=== PATIENT | female | born 1970 | race Caucasian/White ===

== ENCOUNTER 2017-08-08 10:45 | Outpatient (CLI) | payer BC ==
--- NOTE | 2017-08-08 13:54 | MRI ---
MRI CERVICAL SPINE WITHOUT CONTRAST: Date: 08/08/17 HISTORY: Neck pain x2 weeks. COMPARISON: None. TECHNIQUE: MRI cervical spine is performed without intravenous Gadolinium administration. Multisequential, multi planar imaging is performed. FINDINGS: There is appropriate T1 marrow signal intensity of the cervical vertebra. Cervical spine vertebral zeynep dy height is maintained. No fracture. Approximately 2.0 mm of anterolisthesis of C4 upon C5. Visualized brain parenchyma, cervicomedullary junction, cervical cord, and the upper thoracic cord bocanegra ve a normal size and signal intensity. C2-C3: No significant disc osteophyte complex. No significant central canal stenosis. Foramina are patent. C3-C$: No significant disc osteophyte complex. No significant central canal stenosis or foraminal narrowing. C4-C5: No significant disc osteophyte complex. No significant central canal stenosis or foraminal narrowing. C5-C6: Broad based disc osteophyte complex obliterates the ventral subarachnoid space. Mild flattening of th e cervical cord, without T2 hyperintensity of the cord. Mild central canal stenosis. Degenerative whit nges in the right uncovertebral joint result in mild to moderate right foraminal narrowing. Left neur al foramen is mildly narrowed due to degenerative change of the uncovertebral joint. C6-C7: There is a left paracentral disc osteophyte complex that abuts the thecal sac. Mild central canal maci nosis. Minimal mass effect in the left hemicord. No T2 hyperintensity of the cord. Neural foramina ar e patent bilaterally. C7-T1: No significant central canal stenosis or foraminal narrowing. IMPRESSION: Degenerative changes of the cervical spine as detailed above. POS: [facility]
== END 2017-08-08 10:46 | disposition home or self-care (01) ==
LOC: SCSMRI 10:45
PROVIDERS: ATTEND Neurological Surgery
DX: M47.22 Other spondylosis with radiculopathy, cervical region (principal); M54.2 Cervicalgia
CPT/HCPCS: 72141

== ENCOUNTER 2017-09-01 09:20 | Outpatient (CLI) | payer BC ==
--- NOTE | 2017-09-01 12:57 | MRI ---
MRI OF THE LEFT KNEE WITHOUT CONTRAST: Date: 09/01/17 INDICATION: Left knee pain. COMPARISON: None. FINDINGS: There are postsurgical changes of ACL reconstruction. There is undulation of the ACL graft in the int ercondylar region which may be related to impingement of the ACL graft. No definite full thickness te ar is evident. PCL is intact. MCL and LCLC are intact. Medial and lateral meniscus are intact. Extens or mechanism is intact. There is diminutive appearance of the lateral meniscal and medial meniscal zeynep dies which may be related to partial meniscectomies. IMPRESSION: 1. Postsurgical change of ACL reconstruction. There is some undulation of the mid aspect of the ACL graft near the intercondylar notch which can be seen with graft impingement. Recommend correlation wi th the clinical exam. No definite full thickness tear is evident. 2. Truncation appearance of the bodies of both the lateral and medial meniscus may reflect sequelae of partial meniscectomies. POS: [facility]
== END 2017-09-01 09:21 | disposition home or self-care (01) ==
LOC: SCSMRI 09:20
PROVIDERS: ATTEND Orthopaedic Surgery
DX: M25.562 Pain in left knee (principal); Z98.890 Other specified postprocedural states

== ENCOUNTER 2017-10-09 13:22 | Outpatient (CLI) | payer BC ==
[2017-10-09] MEDS ORDERED: ISOVUE-370 76%-LOCM 1 ML ONE (13:23)
== END 2017-10-09 13:23 | disposition home or self-care (01) ==
LOC: BICCT 13:22
PROVIDERS: ATTEND Neurological Surgery
DX: G45.3 Amaurosis fugax (principal); M25.78 Osteophyte, vertebrae; M48.02 Spinal stenosis, cervical region
CPT/HCPCS: 70498

== ENCOUNTER 2018-01-02 11:14 | Outpatient (CLI) | payer BC ==
--- NOTE | 2018-01-02 13:06 | RAD ---
CERVICAL SPINE 3 VIEWS: HISTORY: Neck pain radiating into the right shoulder. COMPARISON: None. FINDINGS: Lateral neutral, lateral extension, and lateral flexion views were performed. Predental space is nor mal. Cervical spine vertebral body heights are maintained and there are no fractures. There is no m ild loss of disk space height and osteophyte formation at C5-C6 and C6-C7. In the neutral position, there is no malalignment. Upon extension and flexion, no abnormal motion. IMPRESSION: Mild degenerative disk disease. No abnormal alignment or motion upon flexion/extension. POS: [facility]
== END 2018-01-02 11:15 | disposition home or self-care (01) ==
LOC: TBSIIMAG 11:14
PROVIDERS: ATTEND Neurological Surgery
DX: M50.10 Cervical disc disorder with radiculopathy, unspecified cervical region (principal)
CPT/HCPCS: 72040

== ENCOUNTER 2018-04-07 14:01 | Outpatient (CLI) | payer BC ==
--- NOTE | 2018-04-07 14:40 | RAD ---
CERVICAL SPINE THREE VIEWS: History: Post op follow up. Cervical radiculopathy. FINDINGS: Post-operative changes are noted. There is has been an anterior fusion procedure with anterior plate and screws transfixing C5, C6, and C7. Interbody implants at these levels appear adequately positione d. Posterior alignment is normally maintained. Vertebral body height is normally preserved. IMPRESSION: Post-operative changes cervical spine as described. POS: [facility]
== END 2018-04-07 14:02 | disposition home or self-care (01) ==
LOC: TBSIIMAG 14:01
PROVIDERS: ATTEND Neurological Surgery
DX: M54.12 Radiculopathy, cervical region (principal); M54.2 Cervicalgia; Z98.1 Arthrodesis status
CPT/HCPCS: 72040

== ENCOUNTER 2018-12-30 09:05 | Outpatient (CLI) | payer BC ==
[~2018-12-30 09:05] MED LIST: Gadobenate Dimeglumine 529 MG/1 ML (20ML VIAL) ONE
--- NOTE | 2018-12-30 13:22 | MRI ---
MRI BRAIN WITH AND WITHOUT CONTRAST: DATE: 12/30/2018. HISTORY: A 48-year-old female with intracranial tumor. COMPARISON: None available. TECHNIQUE: Multiple sequences obtained in axial, sagittal, and coronal planes; pre and post IV injection of gado linium-based contrast agent: 14 mL of MultiHance. FINDINGS: There is a lobular but well circumscribed extraaxial mass in the left anterior cranial fossa with bro ad base against the dural surface of the lesser wing of the left sphenoid bone, more specifically lucia t component involving the left orbital roof near the orbital apex. The mass enhances homogeneously, and measures approximately 1.7 x 1.4 x 1 cm (sagittal T2 weighted image demonstrates CSF cleft betwee n the mass and the adjacent brain). The mass chronically displaces the left anterior inferior gyri, i ncluding orbital gyrus. There is a disproportionately moderate-sized region of vasogenic edema in th e adjacent left frontal lobe brain parenchyma. There is no intraaxial enhancing mass. No recent or remote intraaxial hemorrhage. No restricted dif fusion. Ventricles are normal in size and configuration. No mass effect, midline shift, or extraaxi al fluid collection. IMPRESSION: A 1.7 x 1.4 x 1 cm left anterior cranial fossa mass causing adjacent vasogenic edema. Highly likely to be a meningioma. Less likely solitary dural metastasis. REE Love POS: [facility]
== END 2018-12-30 09:06 | disposition home or self-care (01) ==
LOC: SCSMRI 09:05
PROVIDERS: ATTEND Neurological Surgery
DX: D49.6 Neoplasm of unspecified behavior of brain (principal)
CPT/HCPCS: 70553; A9577

== ENCOUNTER 2019-02-09 14:07 | Outpatient (CLI) | payer BC ==
--- NOTE | 2019-02-09 17:09 | MRI ---
MR CERVICAL SPINE WITHOUT CONTRAST: 02/09/19 INDICATION: History of cervical neck pain for two months. COMPARISON: Prior MRI of the cervical spine dated 08/08/17. FINDINGS: Since the comparison examination, there has been an ACDF of C5 through C7. The visualized posterior fossa is normal appearing. There is a bony hemangioma within T3 and T1. The visualized prevertebral soft tissues appear within normal limits. At C2-C3, there is facet joint degenerative change but no appreciable central canal or neural foramin al narrowing. At C3-4, there is no appreciable central canal or neural foraminal narrowing. At C4-5, there is no appreciable central canal or neural foraminal narrowing. At C5-6, there is a residual osteophyte complex that induces mild ventral effacement of the subarachn oid space without cord compression. There is no appreciable neural foraminal narrowing. At C6-7, there has been improvement in the central canal narrowing seen from the comparison examinati on. At C7-T1, there is no appreciable central canal or neural foraminal narrowing. IMPRESSION: 1. Interval ACDF at C5-C6 and C6-C7 with improvement in the central canal narrowing seen at C5-6 and C6-7 on the comparison examinations. 2. No appreciable neural foraminal narrowing demonstrated. POS: [facility]
== END 2019-02-09 14:08 | disposition home or self-care (01) ==
LOC: SCSMRI 14:07
PROVIDERS: ATTEND Neurological Surgery
DX: M54.2 Cervicalgia (principal); M48.02 Spinal stenosis, cervical region; Z98.1 Arthrodesis status
CPT/HCPCS: 72141

== ENCOUNTER 2019-09-02 11:44 | Outpatient (CLI) | payer BC ==
--- NOTE | 2019-09-02 14:04 | MRI ---
MRI BRAIN WITH AND WITHOUT CONTRAST: 09/02/19 INDICATIONS: Follow-up meningioma. Post radial surgery. Restaging. Comparison made to prior MRI brain dated 12/30/18. FINDINGS: On FLAIR sequence, there continues to be evidence of vasogenic edema in the left frontal lobe. This h as slightly increased when compared to the 12/30/18 exam. This surrounds a dural base mass arising fro m the sphenoid bone/roof of the left orbit near the orbital apex which has been previously described. On postcontrast images, this enhancing mass has not significantly changed in size or appearance. Roula urements are unchanged in all three planes measuring maximum of 1.6 cm AP dimension in the axial plan e by approximately 1.4 cm width in the coronal plane. The ventricles remain normal size and position. No significant midline shift although there is mild m ass effect from the left frontal lobe edema. No other signal abnormality identified. Intracranial internal carotid arteries and cerebral arteries show expected flow voids. The paranasal sinuses and mastoids appear clear. IMPRESSION: 1. Extra-axial enhancing mass arising from the left sphenoid/roof of left orbit near the orbital apex is again seen and is unchanged in size and appearance on postcontrast images. The surrounding v asogenic edema seen on FLAIR sequence shows slight increase today when compared to the prior exam. 2. No other interval change. POS: [facility]
== END 2019-09-02 11:45 | disposition home or self-care (01) ==
LOC: MRI 11:44
PROVIDERS: ATTEND Radiology Radiation Oncology
DX: D32.0 Benign neoplasm of cerebral meninges (principal)
CPT/HCPCS: 70553

== ENCOUNTER 2020-08-23 06:55 | Day surgery (SDC) | payer BC ==
[2020-08-14 13:35] VITALS: BMI 25.7
[2020-08-23 07:36] VITALS: BP 113/77; TEMP 98.7
[2020-08-23] MEDS ORDERED: Iopamidol-M 300 61% 15 ML VIAL ONE (10:17)
== END 2020-08-23 09:45 | disposition home or self-care (01) ==
LOC: RAD 06:55
PROVIDERS: ATTEND Neurological Surgery
PROC: B01B1ZZ Fluoroscopy of Spinal Cord using Low Osmolar Contrast (ICD-10-PCS; principal; 2020-08-23)
DX: M25.78 Osteophyte, vertebrae (principal); N20.0 Calculus of kidney; M53.2X2 Spinal instabilities, cervical region; G89.29 Other chronic pain; M54.41 Lumbago with sciatica, right side; M54.42 Lumbago with sciatica, left side; E11.9 Type 2 diabetes mellitus without complications; E78.5 Hyperlipidemia, unspecified; Z79.899 Other long term (current) drug therapy; Z88.8 Allergy status to other drugs, medicaments and biological substances; Z98.1 Arthrodesis status
CPT/HCPCS: 62305; 72126; 72132; Q9967

== ENCOUNTER 2021-05-23 08:15 | Outpatient (CLI) | payer BC | END 2021-05-23 08:16 | disposition home or self-care (01) | LOC: SCSMRI 08:15 | PROVIDERS: ATTEND Psychiatry & Neurology Neurology | DX: G43.701 Chronic migraine without aura, not intractable, with status migrainosus (principal) | CPT/HCPCS: 70553; 82565 ==

== ENCOUNTER 2021-07-24 10:18 | Outpatient (CLI) | payer BC | END 2021-07-24 10:19 | disposition home or self-care (01) | LOC: TBSIIMAG 10:18 | PROVIDERS: ATTEND Neurological Surgery | DX: M47.22 Other spondylosis with radiculopathy, cervical region (principal); Z98.1 Arthrodesis status; Z98.890 Other specified postprocedural states | CPT/HCPCS: 72050; 72110 ==

== ENCOUNTER 2021-12-31 12:14 | Outpatient (CLI) | payer BC ==
[2021-12-31 13:42] LABS: Hemoglobin 12.5 g/dL (12.0-15.5); Mean Corpuscular HGB CONC 33.8 g/dL (32.0-36.0); Mean Corpuscular Hemoglobin 30.2 pg (27.0-33.0); Mean Corpuscular Volume 89.4 fl (81.6-98.3); Mean Platelet Volume 11.3 fl (7.4-10.4); Platelet Count 277 10x3/uL (150-450); Red Blood Cell (RBC) Count 4.14 10x6/uL (3.90-5.03); White Blood Cell (WBC) Count 7.9 10x3/uL (3.5-10.5)
[2021-12-31 13:56] LABS: INR-International Normal Ratio 0.9; PTT 26.5 sec (22.0-33.0); Prothrombin Time 10.3 sec (9.5-12.1)
[2021-12-31 14:00] LABS: Anion Gap 15 mmol/L (10-20); BUN (Urea Nitrogen) 7 mg/dL (7.0-18.7); Calc. Creatinine Clearance 0 mL/min (70-130); Calcium 9.5 mg/dL (7.8-10.44); Carbon Dioxide 24 mmol/L (22-29); Chloride 105 mmol/L (98-107); Estimated GFR 89; Glucose 91 mg/dL (70-105); Potassium 3.9 mmol/L (3.5-5.1); Sodium 140 mmol/L (136-145)
== END 2021-12-31 12:15 | disposition home or self-care (01) ==
LOC: LABBT 12:14
PROVIDERS: ATTEND Neurological Surgery
DX: Z01.818 Encounter for other preprocedural examination (principal); S32.059A Unspecified fracture of fifth lumbar vertebra, initial encounter for closed fracture; S32.10XA Unspecified fracture of sacrum, initial encounter for closed fracture; Z20.822 Contact with and (suspected) exposure to COVID-19
CPT/HCPCS: 80048; 85027; 85610; 85730; 87811; 93005; 93010

== ENCOUNTER 2021-12-31 12:30 | Inpatient (IN) | payer BC ==
[2022-01-01 11:18] VITALS: BMI 27.4
[2022-01-03] MEDS ORDERED: Bupivacaine PF 0.5% 30 ML VIAL ONE (12:50)
[2022-01-03] MEDS ORDERED: EPINEPHrine 1 MG/ML AMP ONE (12:50)
[2022-01-03] MEDS ORDERED: Thrombin 5000 UNITS/5 ML VIAL ONE (12:51)
[2022-01-03] MEDS ORDERED: Neomycin-Polymyxin 1 ML AMP ONE (12:51)
[2022-01-03] MEDS ORDERED: HYDROcodone/Acetaminophen 7.5/325 mg Tablet PO PRN (13:12)
[2022-01-03] MEDS ORDERED: Ondansetron PF 4 MG/2 ML Vial IVP PRN (13:12)
[2022-01-03] MEDS ORDERED: diphenhydrAMINE 50 MG/ML VIAL IVP PRN (13:12)
[2022-01-03] MEDS ORDERED: Morphine 2 MG/ML VIAL SLOW IVP PRN (13:12)
[2022-01-03] MEDS ORDERED: Acetaminophen/Codeine 30-300mg Tablet PO PRN (13:12)
[2022-01-03] MEDS ORDERED: Acetaminophen 325 MG TAB PO PRN (13:12)
[2022-01-03] MEDS ORDERED: HYDROcodone/Acetaminophen 10/325 mg Tablet PO PRN (13:12)
[2022-01-03] MEDS ORDERED: Prochlorperazine 10 MG/2 ML VIAL IM PRN (13:12)
[2022-01-03] MEDS ORDERED: Sodium Chloride 0.9% 1,000 ML IV SCH (13:15)
[2022-01-03] MEDS ORDERED: CEFAZOLIN 2 GM VIAL ONE (13:37)
[2022-01-03] MEDS ORDERED: Sodium Chloride 0.9% 100 ML ONE (13:37)
[2022-01-03] MEDS ORDERED: Esmolol 100 MG/10 ML VIAL ONE (13:54)
[2022-01-03] MEDS ORDERED: Lidocaine 1% PF 5 ML VIAL ONE (13:54)
[2022-01-03] MEDS ORDERED: PROPOFOL 200 MG/20 ML VIAL ONE (13:54)
[2022-01-03] MEDS ORDERED: Glycopyrrolate 0.2 MG/ML 5 ML SYRINGE ONE (13:54)
[2022-01-03] MEDS ORDERED: Rocuronium Bromide 10 MG/ML (10ML VIAL) ONE (13:54)
[2022-01-03] MEDS ORDERED: Dexamethasone 20 MG/5 ML VIAL ONE (13:54)
[2022-01-03] MEDS ORDERED: PHENYLEPHRINE-NS 100 MCG/ML 10 ML SYRINGE ONE (13:54)
[2022-01-03] MEDS ORDERED: Ondansetron PF 4 MG/2 ML Vial ONE ×2 (13:54→16:00)
[2022-01-03] MEDS ORDERED: fentaNYL Citrate/PF 100 MCG/2 ML SYRINGE ONE (14:11)
[2022-01-03] MEDS ORDERED: HYDROmorphone 0.5 MG/0.5 ML SYRINGE ONE (15:51)
[2022-01-03] MEDS ORDERED: Fentanyl 100 MCG/2 ML VIAL ONE ×3 (15:51→16:25)
[2022-01-03] MEDS ORDERED: HYDROcodone/Acetaminophen 5/325 mg Tablet ONE ×2 (17:31)
[2022-01-04] MEDS ORDERED: Tamsulosin HCl 0.4 MG CAP PO SCH (06:00)
== END 2022-01-03 18:10 | disposition home or self-care (01) | DRG 517 ==
LOC: SURG A 01-03 10:32 → EDSTATUS 01-03 12:30
PROVIDERS: ADMIT Neurological Surgery; ATTEND Neurological Surgery
PROC: 0QB00ZZ Excision of Lumbar Vertebra, Open Approach (ICD-10-PCS; principal; 2022-01-03)
DX: M96.0 Pseudarthrosis after fusion or arthrodesis (principal); Z20.822 Contact with and (suspected) exposure to COVID-19; Y83.8 Other surgical procedures as the cause of abnormal reaction of the patient, or of later complication, without mention of misadventure at the time of the procedure; M25.78 Osteophyte, vertebrae; E11.9 Type 2 diabetes mellitus without complications; D32.9 Benign neoplasm of meninges, unspecified; Z88.8 Allergy status to other drugs, medicaments and biological substances; Z79.899 Other long term (current) drug therapy
CPT/HCPCS: 76000; 80048; 85027; 85610; 85730; 87811; 93005; 93010; J0171; J0690; J1100; J1170; J2405; J2704; J2710; J3010; J3370; J3490; S0020

== ENCOUNTER 2022-01-11 13:36 | Outpatient (CLI) | payer BC | END 2022-01-11 13:37 | disposition home or self-care (01) | LOC: ULT 13:36 | PROVIDERS: ATTEND Neurological Surgery | DX: M79.605 Pain in left leg (principal); M79.89 Other specified soft tissue disorders; I82.412 Acute embolism and thrombosis of left femoral vein | CPT/HCPCS: 93970 ==

== ENCOUNTER 2022-01-11 16:32 | Observation (INO) | payer BC ==
[2022-01-11 19:36] LABS: #Eosinphils 0.2 thou/uL (0.0-0.7); #Monocytes 0.8 thou/uL (0.11-0.59); #Neutrophils 7.8 thou/uL (1.40-6.50); %Basophils 0.1 % (0.0-1.0); %Eosinophils 1.9 % (0.0-10.0); %Lymphocytes 18.2 % (21.0-51.0); %Monocytes 7.7 % (0.0-10.0); %Neutrophils 72.1 % (42.0-75.0); Hemoglobin 10.9 g/dL (12.0-16.0); Mean Corpuscular HGB CONC 33.4 g/dL (32.0-36.0); Mean Corpuscular Hemoglobin 30.8 pg (27.0-31.0); Mean Corpuscular Volume 92.2 fL (78.0-98.0); Mean Platelet Volume 7.9 fL (7.4-10.4); Platelet Count 281 thou/uL (130-400); RBC Distribution Width 12.3 % (11.5-14.5); Red Blood Cell (RBC) Count 3.53 mill/uL (4.20-5.40); White Blood Cell (WBC) Count 10.8 thou/uL (4.8-10.8)
[2022-01-11 19:46] LABS: INR-International Normal Ratio 1.1; PTT 29.1 sec (22.9-36.1); Prothrombin Time 14.1 sec (12.0-14.7)
[2022-01-11 19:55] LABS: ALT (SGPT) 9 U/L (8-55); AST (SGOT) 14 U/L (5-34); Albumin 3.9 g/dL (3.5-5.0); Alkaline Phosphatase 96 U/L (40-110); Anion Gap 14 mmol/L (10-20); BUN (Urea Nitrogen) 8 mg/dL (7.0-18.7); Bilirubin, Total 0.3 mg/dL (0.2-1.2); Calc. Creatinine Clearance 0 mL/min (70-130); Calcium 9.2 mg/dL (7.8-10.44); Carbon Dioxide 26 mmol/L (22-29); Chloride 101 mmol/L (98-107); Estimated GFR 88; Globulin 3.1 g/dL (2.4-3.5); Glucose 116 mg/dL (70-105); Sodium 137 mmol/L (136-145)
[2022-01-11] MEDS ORDERED: HYDROcodone/Acetaminophen 5/325 mg Tablet ONE (20:53)
[2022-01-11] MEDS ORDERED: Sodium Chloride 0.9% 1,000 ML IV SCH (21:00)
[2022-01-11 21:42] LABS: Bacteria/HPF 4+ HPF (None Seen); Bilirubin Negative (Negative); Blood, Urine Negative (Negative); Clarity Turbid (Clear); Glucose, Urine (Dipstick) Normal (Negative); Ketone, Urine Negative (Negative); Leukocyte 500 Leu/uL (Negative); Nitrite Negative (Negative); Protein, Urine (Dipstick) Negative (Neg-Trace); RBC/HPF 0-3 HPF (0-3); Renal Epithelial 0-3 HPF (None Seen); Specific Gravity, Urine 1.012 (1.002-1.036); Urobilinogen Normal mg/dL (Less than 2); WBC/HPF Greater than 50 HPF (0-3)
[2022-01-11 22:46] VITALS: BMI 26.6
[2022-01-11] MEDS ORDERED: Bisacodyl 5 MG TAB PO PRN (23:05)
[2022-01-11] MEDS ORDERED: Calcium Carbonate 500 MG ChewTAB PO PRN (23:05)
[2022-01-11] MEDS ORDERED: HYDROcodone/Acetaminophen 5/325 mg Tablet PO PRN (23:05)
[2022-01-11] MEDS ORDERED: Senokot S 8.6-50 MG TAB PO PRN (23:05)
[2022-01-11] MEDS ORDERED: Acetaminophen 325 MG TAB PO PRN (23:05)
[2022-01-11] MEDS ORDERED: Ondansetron ODT 4 MG TAB PO PRN (23:05)
[2022-01-11] MEDS ORDERED: Ondansetron PF 4 MG/2 ML Vial IVP PRN (23:05)
[2022-01-11] MEDS ORDERED: Dextrose 50% Abboject 50 ML SYRINGE SLOW IVP PRN (23:47)
[2022-01-11] MEDS ORDERED: Dextrose 5% in Water 1,000 ML IV PRN (23:47)
[2022-01-12] MEDS ORDERED: Morphine 2 MG/ML VIAL SLOW IVP SCH (04:45)
[2022-01-12 06:01] LABS: #Eosinphils 0.2 thou/uL (0.0-0.7); #Lymphocytes 2.2 thou/uL (1.20-3.40); #Monocytes 0.8 thou/uL (0.11-0.59); #Neutrophils 5.9 thou/uL (1.40-6.50); %Basophils 0.2 % (0.0-1.0); %Eosinophils 2.4 % (0.0-10.0); %Lymphocytes 24.3 % (21.0-51.0); %Monocytes 9.1 % (0.0-10.0); Mean Corpuscular HGB CONC 32.9 g/dL (32.0-36.0); Mean Corpuscular Hemoglobin 30.5 pg (27.0-31.0); Mean Corpuscular Volume 92.8 fL (78.0-98.0); Mean Platelet Volume 7.7 fL (7.4-10.4); Platelet Count 264 thou/uL (130-400); RBC Distribution Width 12.2 % (11.5-14.5); Red Blood Cell (RBC) Count 3.29 mill/uL (4.20-5.40); White Blood Cell (WBC) Count 9.2 thou/uL (4.8-10.8)
[2022-01-12 06:19] LABS: ALT (SGPT) 11 U/L (8-55); AST (SGOT) 16 U/L (5-34); Albumin 3.5 g/dL (3.5-5.0); Alkaline Phosphatase 86 U/L (40-110); Anion Gap 13 mmol/L (10-20); BUN (Urea Nitrogen) 7 mg/dL (7.0-18.7); Bilirubin, Total 0.4 mg/dL (0.2-1.2); Calc. Creatinine Clearance 110 mL/min (70-130); Calcium 8.8 mg/dL (7.8-10.44); Carbon Dioxide 25 mmol/L (22-29); Chloride 106 mmol/L (98-107); Estimated GFR 104; Globulin 2.9 g/dL (2.4-3.5); Glucose 115 mg/dL (70-105); Potassium 4.2 mmol/L (3.5-5.1); Protein, Total 6.4 g/dL (6.0-8.3); Sodium 140 mmol/L (136-145)
[2022-01-12] MEDS ORDERED: Iopamidol 370 76% 50 ML VIAL FS ONE (09:44)
[2022-01-12] MEDS ORDERED: Lidocaine 1% (PF) 30 ML VIAL ONE (10:48)
[2022-01-12] MEDS ORDERED: Sodium Chloride 0.9% 1,000 ML IV SCH (12:51)
[2022-01-12 18:15] VITALS: BP 112/63; TEMP 97.1
== END 2022-01-12 17:06 | disposition home or self-care (01) ==
LOC: ERS 16:32 → T4-B 20:50
PROVIDERS: ADMIT Internal Medicine; ATTEND Internal Medicine
PROC: 06H03DZ Insertion of Intraluminal Device into Inferior Vena Cava, Percutaneous Approach (ICD-10-PCS; principal; 2022-01-12)
DX: I82.412 Acute embolism and thrombosis of left femoral vein (principal); E11.9 Type 2 diabetes mellitus without complications; Z88.8 Allergy status to other drugs, medicaments and biological substances; Z20.822 Contact with and (suspected) exposure to COVID-19
CPT/HCPCS: 36415; 37191; 80053; 81003; 81015; 83605; 85025; 85610; 85730; 87040; 87086; 93005; 93970; 94760; 96374; C1769; C1880; G0378; J2001; J2270; J7050; Q9967; U0003; U0005

== ENCOUNTER 2023-12-10 11:06 | Outpatient (CLI) | payer BC | END 2023-12-10 11:07 | disposition home or self-care (01) | LOC: SCSRAD 11:06 | PROVIDERS: ATTEND Student in an Organized Health Care Education/Training Program | DX: R05.3 Chronic cough (principal) | CPT/HCPCS: 71046 ==

== ENCOUNTER 2024-02-25 08:58 | Outpatient (CLI) | payer BC | END 2024-02-25 08:59 | disposition home or self-care (01) | LOC: SCSMRI 08:58 | PROVIDERS: ATTEND Neurological Surgery | DX: D32.9 Benign neoplasm of meninges, unspecified (principal); G93.6 Cerebral edema; G93.89 Other specified disorders of brain | CPT/HCPCS: 36415; 70553; 76376; 82565 ==

== ENCOUNTER 2024-05-25 08:57 | Outpatient (CLI) | payer BC ==
[2024-05-25] MEDS ORDERED: Regadenoson 0.4 MG/5 ML SYRINGE ONE (10:09)
== END 2024-05-25 08:58 | disposition home or self-care (01) ==
LOC: NM 08:57
PROVIDERS: ATTEND Student in an Organized Health Care Education/Training Program
DX: R07.2 Precordial pain (principal)
CPT/HCPCS: 78452; 93017; A9502; J2785

== ENCOUNTER 2025-03-14 09:34 | Outpatient (CLI) | payer BC ==
[2025-03-14 10:07] LABS: Estimated GFR - POC 76.0
== END 2025-03-14 09:35 | disposition home or self-care (01) ==
LOC: SCSMRI 09:34
PROVIDERS: ATTEND Neurological Surgery
DX: D49.6 Neoplasm of unspecified behavior of brain (principal); G93.6 Cerebral edema; G93.89 Other specified disorders of brain
CPT/HCPCS: 36415; 70553; 76376; 82565